=== PATIENT | female | born 1945 | race Caucasian/White ===

== ENCOUNTER 2017-06-21 12:55 | Outpatient (CLI) | payer MEDICARE ==
--- NOTE | 2017-06-27 12:27 | PFT ---
PATIENT HISTORY: HEIGHT: 67 IN WEIGHT: 222 SMOKER: NO HOW LON YRS PACKS PER DAY 2 PRODUCTIVE COUGH: NO LUNG DISEASE: PHYSICIAN INTERPRETATION FINAL REPORT: DATE orthotics technician The patient had good effort and cooperation FVC 2.61 (86%), FEV1 1.97 (91%), FEV1/FVC 0.76. TLC 4.36 (88%), RV 1.77 (88%), FRC 2.01 (69%). Diffusion 17.55 (97%). The FEV1 and the FVC fall within the normal limits. The ratio was also normal suggesting there is no evidence of obstructive airflow limitation. There is no significant improvement following bronchodilator. Total lung capacity and residual volume fall within the normal limits. The FRC is minimally reduced. Diffusion capacity falls easily within the normal limits. IMPRESSION: These pulmonary function studies are normal. Strike Off Machine Operator: NAIF Purchasing Assistant: NAIF EUCEDA
== END 2017-06-21 12:56 | disposition home or self-care (01) ==
LOC: CP 12:55
PROVIDERS: ATTEND Internal Medicine
DX: R06.00 Dyspnea, unspecified (principal); R05 Cough; R53.83 Other fatigue
CPT/HCPCS: 94060; 94727; 94729

== ENCOUNTER 2017-06-23 14:40 | Outpatient (CLI) | payer MEDICARE ==
--- NOTE | 2017-06-23 15:03 | RAD ---
CHEST 2 VIEWS: Date: 06/23/17 COMPARISON: 04/25/14. HISTORY: Dyspnea on exertion, fatigue. FINDINGS: Loop recorder overlies left hilar shadow on frontal imaging. No pneumothorax, pleural fluid, focal co nsolidation, or alveolar edema. Heart and mediastinal contour stable. IMPRESSION: No acute findings. POS: [facility]
== END 2017-06-23 14:41 | disposition home or self-care (01) ==
LOC: RAD 14:40
PROVIDERS: ATTEND Internal Medicine
DX: R06.00 Dyspnea, unspecified (principal); R05 Cough; R53.83 Other fatigue
CPT/HCPCS: 71046

== ENCOUNTER 2018-03-12 10:39 | Outpatient (CLI) | payer MEDICARE ==
--- NOTE | 2018-03-12 13:13 | MRI ---
MRI OF THE LEFT KNEE WITHOUT CONTRAST: Date: 03/12/18 INDICATION: Left knee pain. FINDINGS: There is a horizontally oriented tear involving the body, posterior junction and posterior horn of th e medial meniscus. There is partial medial extrusion of the medial meniscus. The lateral meniscus is intact. Articular cartilage of the femorotibial compartments appears relatively well maintained. The ACL, PCL, MCL, and LCLC are intact. There is focal full thickness articular cartilage defect involvin g the lateral patellar facet with subchondral edema on image 5 of series 4 measuring approximately 8. 0 mm in its greatest axial dimension. There is a small semimembranosus-medial gastrocnemius popliteal cyst. IT band is normal appearing. Extensor mechanism is intact. IMPRESSION: 1. Medial meniscal tear. 2. Moderate chondrosis of the lateral patellar facet with an area of focal full thickness defect juan josé suring 8.0 mm. POS: [facility]
== END 2018-03-12 10:40 | disposition home or self-care (01) ==
LOC: BICMRI 10:39
PROVIDERS: ATTEND Orthopaedic Surgery
DX: M25.562 Pain in left knee (principal); S83.242A Other tear of medial meniscus, current injury, left knee, initial encounter

== ENCOUNTER 2018-04-03 13:14 | Outpatient (CLI) | payer MEDICARE ==
--- NOTE | 2018-04-03 16:21 | MRI ---
MRI RIGHT KNEE WITHOUT CONTRAST: COMPARISON: None. FINDINGS: There is a small, partial-thickness, central radial tear involving the posterior junction of the medi al meniscus, with partial medial extrusion, and this is best seen on image 17 of series 9 and on imag e 18 of series 8. The lateral meniscus is intact. There is moderate chondrosis involving the lateral femorotibial joint compartment. There is mild dif fuse chondrosis involving the medial femorotibial joint compartment. There is moderate to severe cho ndrosis involving the lateral patellofemoral compartment. There are small marginal osteophytes affec ting all major compartments of the right knee. The ACL, PCL, MCL, and LCLC appear intact. The popliteus and IT band appears within normal limits. The extensor mechanism is intact. There is a smaller Isaacs's cyst. IMPRESSION: 1. Mild osteoarthrosis of the right knee, predominantly involving the patellofemoral and lateral fem orotibial joint compartment. 2. Small central free edge radial tear involving the posterior junction of the medial meniscus with partial medial extrusion. POS: [facility]
== END 2018-04-03 13:15 | disposition home or self-care (01) ==
LOC: BICMRI 13:14
PROVIDERS: ATTEND Orthopaedic Surgery
DX: M25.561 Pain in right knee (principal); M17.11 Unilateral primary osteoarthritis, right knee; S83.241A Other tear of medial meniscus, current injury, right knee, initial encounter

== ENCOUNTER 2018-11-29 09:03 | Outpatient (CLI) | payer MEDICARE ==
--- NOTE | 2018-11-29 12:23 | CT ---
CT CHEST AND ABDOMEN AND PELVIS PERFORMED WITH IV CONTRAST ENHANCEMENT: Date: 11/29/18 HISTORY: Chest and abdominal pain. Fatigue and fever x2 years. History of autoimmune disease. Also history of appendectomy. COMPARISON: CT abdomen that was performed 12/21/16. FINDINGS: CT CHEST: Lungs are clear of any infiltrative process. There are no pulmonary nodules identified or pleural eff usions. Thyroid gland normal in size. No significant mediastinal or hilar adenopathy. Thoracic aorta is normal in caliber. CT ABDOMEN: CT of abdomen performed with contrast enhancement. The liver shows no focal abnormalities. The spleen and pancreas regions appear unremarkable. Large gallstones are present. Right and left adrenal gland s, and right and left kidneys are normal in size. There is no significant periaortic or mesenteric ad enopathy. CT PELVIS: CT of pelvis was performed with contrast enhancement. No evidence of any significant adenopathy, mass , or free fluid. Review of osseous structures show some arthritic changes of the spine. IMPRESSION: 1. Large gallstones. 2. No acute findings of the chest, abdomen, or pelvis. POS: [facility]
[2018-11-29] MEDS ORDERED: Iopamidol 370 76% 100 ML VIAL ONE (18:13)
== END 2018-11-29 09:04 | disposition home or self-care (01) ==
LOC: CT 09:03
PROVIDERS: ATTEND Internal Medicine
DX: C85.80 Other specified types of non-Hodgkin lymphoma, unspecified site (principal); R50.9 Fever, unspecified; R53.83 Other fatigue; R61 Generalized hyperhidrosis; K80.20 Calculus of gallbladder without cholecystitis without obstruction
CPT/HCPCS: 71260; 74177; Q9967

== ENCOUNTER 2018-12-20 13:40 | Outpatient (CLI) | payer MEDICARE ==
--- NOTE | 2018-12-20 15:16 | MRI ---
MRI BRAIN WITH AND WITHOUT IV CONTRAST: HISTORY: Headache, anesthesia of skin COMPARISON: 12/23/2016 FINDINGS: No restricted diffusion is seen. No evidence of infarct, hemorrhage, mass, midline shift or abnormal extra-axial fluid collections is noted. No abnormal postcontrast enhancement is seen. The ventricular size is appropriate and the basilar cisterns are patent. There are a few foci of T2 prolongation in the periventricular white matter, consistent with minimal chronic small vessel ischemic disease. These are essentially unchanged since the previous study. The visualized paranasal sinuses and mastoid air cells are well aerated. IMPRESSION: Stable exam. No evidence of acute intracranial process or mass.
== END 2018-12-20 13:41 | disposition home or self-care (01) ==
LOC: BICMRI 13:40
PROVIDERS: ATTEND Internal Medicine
DX: R51 Headache (principal); R20.0 Anesthesia of skin
CPT/HCPCS: 70553

== ENCOUNTER 2019-01-10 13:01 | Outpatient (CLI) | payer MEDICARE ==
--- NOTE | 2019-01-10 14:04 | MMO ---
Bilateral MAMMO Bilat Screen [facility]. CLINICAL HISTORY: Patient is 73 years old and is seen for screening. The patient has the following family history of breast cancer: maternal aunt, at age 60. The patient has no personal history of cancer. VIEWS: The views performed were: bilateral craniocaudal with tomosynthesis and bilateral mediolateral oblique with tomosynthesis. FILMS COMPARED: The present examination has been compared to prior imaging studies performed at [facility] on 02/15/2010, 08/27/2013 and 09/29/2014. This study has been interpreted with the assistance of computer-aided detection. MAMMOGRAM FINDINGS: There are scattered fibroglandular densities. There are no suspicious masses, suspicious calcifications, or new areas of architectural distortion. IMPRESSION: THERE IS NO MAMMOGRAPHIC EVIDENCE OF MALIGNANCY. A ROUTINE FOLLOW-UP MAMMOGRAM IN 1 YEAR IS RECOMMENDED. THE RESULTS OF THIS EXAM WERE SENT TO THE PATIENT. ACR BI-RADS Category 1 - Negative MAMMOGRAPHY NOTE: 1. A negative mammogram report should not delay a biopsy if a dominant of clinically suspicious mass is present. 2. Approximately 10% to 15% of breast cancers are not detected by mammography. 3. Adenosis and dense breasts may obscure an underlying neoplasm. Reported by: Remi CAMPO Electonically Signed: [id number]
== END 2019-01-10 13:02 | disposition home or self-care (01) ==
LOC: BICMAMMO 13:01
PROVIDERS: ATTEND Internal Medicine
DX: Z12.31 Encounter for screening mammogram for malignant neoplasm of breast (principal); Z80.3 Family history of malignant neoplasm of breast
CPT/HCPCS: 77063; 77067

== ENCOUNTER 2019-01-15 10:32 | Outpatient (CLI) | payer MEDICARE ==
--- NOTE | 2019-01-15 14:37 | NM ---
WHOLE BODY BONE SCAN: HISTORY: Skull pain RADIOPHARMACEUTICAL: 32.7 mCi technetium-99m MDP injected intravenously. COMPARISON: MRI brain 12/20/2018 FINDINGS: There is increased uptake in the shoulders, knees, and feet consistent with degenerative changes. No other abnormal areas of tracer localization seen in the skeleton to suggest metastatic disease. No abnormality is seen in the skull. Tracer excretion through the kidneys is within normal limits. IMPRESSION: No significant abnormality.
== END 2019-01-15 10:33 | disposition home or self-care (01) ==
LOC: NM 10:32
PROVIDERS: ATTEND Internal Medicine
DX: R51 Headache (principal); M25.50 Pain in unspecified joint; M54.5 Low back pain
CPT/HCPCS: 78306; A9503

== ENCOUNTER 2020-12-17 13:58 | Outpatient (CLI) | payer MEDICARE | END 2020-12-17 13:59 | disposition home or self-care (01) | LOC: BICMAMMO 13:58 | PROVIDERS: ATTEND Internal Medicine | DX: N63.20 Unspecified lump in the left breast, unspecified quadrant (principal); Z80.3 Family history of malignant neoplasm of breast; R92.8 Other abnormal and inconclusive findings on diagnostic imaging of breast | CPT/HCPCS: 76642 ×2; 77066; G0279 ==

== ENCOUNTER 2021-09-22 17:54 | Observation (INO) | payer MEDICARE ==
[2021-09-22 19:23] LABS: #Eosinphils 0.1 thou/uL (0.0-0.7); #Lymphocytes 1.2 thou/uL (1.20-3.40); #Monocytes 0.4 thou/uL (0.11-0.59); #Neutrophils 4.3 thou/uL (1.40-6.50); %Basophils 0.4 % (0.0-1.0); %Eosinophils 1.8 % (0.0-10.0); %Lymphocytes 19.3 % (21.0-51.0); %Monocytes 7.2 % (0.0-10.0); %Neutrophils 71.3 % (42.0-75.0); Hemoglobin 15.1 g/dL (12.0-16.0); Mean Corpuscular HGB CONC 34.7 g/dL (32.0-36.0); Mean Corpuscular Hemoglobin 34.1 pg (27.0-31.0); Mean Corpuscular Volume 98.1 fL (78.0-98.0); Mean Platelet Volume 9.2 fL (7.4-10.4); Platelet Count 204 thou/uL (130-400); RBC Distribution Width 10.8 % (11.5-14.5); Red Blood Cell (RBC) Count 4.44 mill/uL (4.20-5.40); White Blood Cell (WBC) Count 6.1 thou/uL (4.8-10.8)
[2021-09-22 19:48] LABS: ALT (SGPT) 16 U/L (8-55); AST (SGOT) 19 U/L (5-34); Albumin 4.1 g/dL (3.4-4.8); Alkaline Phosphatase 79 U/L (40-110); Anion Gap 14 mmol/L (10-20); BUN (Urea Nitrogen) 16 mg/dL (9.8-20.1); Bilirubin, Total 0.4 mg/dL (0.2-1.2); Calc. Creatinine Clearance 0 mL/min (70-130); Calcium 9.1 mg/dL (7.8-10.44); Carbon Dioxide 26 mmol/L (23-31); Chloride 104 mmol/L (98-107); Estimated GFR 73; Globulin 2.6 g/dL (2.4-3.5); Glucose 130 mg/dL (83-110); Lipase 26 U/L (8-78); Protein, Total 6.7 g/dL (5.8-8.1); Sodium 139 mmol/L (136-145)
[2021-09-22] MEDS ORDERED: Morphine 4 MG/ML VIAL ONE (20:31)
[2021-09-22] MEDS ORDERED: Ondansetron PF 4 MG/2 ML Vial ONE (20:31)
[2021-09-22 22:13] LABS: Bacteria/HPF 2+ HPF (None Seen); Bilirubin Negative (Negative); Blood, Urine Negative (Negative); Clarity Clear (Clear); Glucose, Urine (Dipstick) Normal (Negative); Ketone, Urine Negative (Negative); Leukocyte 75 Leu/uL (Negative); Nitrite Negative (Negative); Protein, Urine (Dipstick) Negative (Neg-Trace); RBC/HPF 0-3 HPF (0-3); Specific Gravity, Urine 1.017 (1.002-1.036); Urobilinogen Normal mg/dL (Less than 2); WBC/HPF 0-3 HPF (0-3); pH, Urine 5.5 (5.0-9.0)
[2021-09-22] MEDS ORDERED: Morphine 4 MG/ML VIAL SLOW IVP PRN (22:56)
[2021-09-22] MEDS ORDERED: Ondansetron PF 4 MG/2 ML Vial IVP PRN (23:00)
[2021-09-22] MEDS ORDERED: Piperacillin/Tazobactam 3.375 GM in Sodium Chloride 0.9% 100 ML IVPB SCH (23:00)
[2021-09-22] MEDS ORDERED: Ondansetron ODT 4 MG TAB SL PRN (23:00)
[2021-09-22] MEDS ORDERED: Acetaminophen 325 MG TAB PO PRN (23:00)
[2021-09-23] MEDS: Lactated Ringer's 1,000 ML IV SCH ×2 (00:05→08:15)
[2021-09-23] MEDS ORDERED: Piperacillin/Tazobactam 3.375 GM in Sodium Chloride 0.9% 100 ML IVPB SCH (04:00)
[2021-09-23 06:15] VITALS: BMI 38.1
[2021-09-23] MEDS ORDERED: cefOXitin 2 GM in Sodium Chloride 0.9% 100 ML IVPB SCH (10:00)
[2021-09-23] MEDS ORDERED: fentaNYL Citrate/PF 100 MCG/2 ML SYRINGE ONE ×2 (11:07→13:46)
[2021-09-23] MEDS ORDERED: Ondansetron PF 4 MG/2 ML Vial ONE ×2 (12:47→14:00)
[2021-09-23] MEDS ORDERED: Bupivacaine/Epinephrine 0.25% 30 ML VIAL ONE (13:29)
[2021-09-23] MEDS ORDERED: Midazolam HCl 2 mg/2 ml Vial ONE (13:46)
[2021-09-23] MEDS ORDERED: cefTRIAXone\\ROCEPHIN 2 GM VIAL ONE (13:50)
[2021-09-23] MEDS ORDERED: Sodium Chloride 0.9% 100 ML ONE (13:50)
[2021-09-23] MEDS ORDERED: PROPOFOL 200 MG/20 ML VIAL ONE (14:00)
[2021-09-23] MEDS ORDERED: Glycopyrrolate 0.2 MG/ML 5 ML SYRINGE ONE (14:00)
[2021-09-23] MEDS ORDERED: Dexamethasone 20 MG/5 ML VIAL ONE (14:00)
[2021-09-23] MEDS ORDERED: Rocuronium Bromide 10 MG/ML (10ML VIAL) ONE (14:00)
[2021-09-23] MEDS ORDERED: Lidocaine 1% PF 5 ML VIAL ONE (14:00)
[2021-09-23] MEDS ORDERED: HYDROmorphone 2 MG/ML VIAL ONE (14:45)
[2021-09-23] MEDS ORDERED: Promethazine HCl 25 MG/ML VIAL ONE (15:42)
[2021-09-23] MEDS ORDERED: Fentanyl 100 MCG/2 ML VIAL ONE (15:47)
[2021-09-23] MEDS ORDERED: HYDROcodone/Acetaminophen 10/325 mg Tablet PO SCH (18:30)
[2021-09-23] MEDS ORDERED: HYDROcodone/Acetaminophen 7.5/325 mg Tablet PO PRN ×2 (20:58→20:59)
[2021-09-24 08:38] VITALS: BP 121/68; TEMP 98.2
== END 2021-09-24 11:43 | disposition home or self-care (01) ==
LOC: ERS 17:54 → SJJU 22:11
PROVIDERS: ADMIT Specialist; ATTEND Specialist
PROC: 0FT44ZZ Resection of Gallbladder, Percutaneous Endoscopic Approach (ICD-10-PCS; principal; 2021-09-23)
DX: K80.12 Calculus of gallbladder with acute and chronic cholecystitis without obstruction (principal); K66.0 Peritoneal adhesions (postprocedural) (postinfection); E03.9 Hypothyroidism, unspecified; E78.00 Pure hypercholesterolemia, unspecified; M19.90 Unspecified osteoarthritis, unspecified site; I73.00 Raynaud's syndrome without gangrene; M35.00 Sjogren syndrome, unspecified; G62.9 Polyneuropathy, unspecified; E66.01 Morbid (severe) obesity due to excess calories; Z68.38 Body mass index [BMI] 38.0-38.9, adult; Z87.891 Personal history of nicotine dependence; Z79.890 Hormone replacement therapy; Z79.899 Other long term (current) drug therapy; Z88.1 Allergy status to other antibiotic agents; Z88.2 Allergy status to sulfonamides; Z91.013 Allergy to seafood; Z20.822 Contact with and (suspected) exposure to COVID-19
CPT/HCPCS: 47562; 71045; 76705; 80053; 83690; 84484; 85025; 93005; 96361; 96365; 96375; 96376; 99285; C1713; G0378 ×4; U0003; U0005; 81003; 81015; 88304; 96374; J0696; J1100; J1170; J2250; J2270; J2405; J2543; J2550; J2704; J2710; J3010; J3490; J7120

== ENCOUNTER 2021-10-11 17:15 | Emergency (ER) | payer MEDICARE | END 2021-10-11 18:52 | disposition home or self-care (01) | LOC: ERS 17:15 | DX: R58 Hemorrhage, not elsewhere classified (principal); E03.9 Hypothyroidism, unspecified; E78.5 Hyperlipidemia, unspecified; E78.00 Pure hypercholesterolemia, unspecified; Z79.899 Other long term (current) drug therapy; M79.602 Pain in left arm; M79.89 Other specified soft tissue disorders ==

== ENCOUNTER 2021-11-06 14:57 | Inpatient (IN) | payer MEDICARE ==
[2021-11-06 15:30] LABS: #Basophils 0.1 thou/uL (0.0-0.2); #Eosinphils 0.2 thou/uL (0.0-0.7); #Lymphocytes 2.9 thou/uL (1.20-3.40); #Monocytes 0.6 thou/uL (0.11-0.59); #Neutrophils 3.6 thou/uL (1.40-6.50); %Basophils 1.1 % (0.0-1.0); %Eosinophils 2.5 % (0.0-10.0); %Lymphocytes 39.3 % (21.0-51.0); %Monocytes 8.2 % (0.0-10.0); %Neutrophils 48.8 % (42.0-75.0); Hemoglobin 14.9 g/dL (12.0-16.0); Mean Corpuscular HGB CONC 34.5 g/dL (32.0-36.0); Mean Corpuscular Hemoglobin 33.2 pg (27.0-31.0); Mean Corpuscular Volume 96.4 fL (78.0-98.0); Mean Platelet Volume 8.9 fL (7.4-10.4); Platelet Count 218 thou/uL (130-400); RBC Distribution Width 11.3 % (11.5-14.5); Red Blood Cell (RBC) Count 4.48 mill/uL (4.20-5.40); White Blood Cell (WBC) Count 7.3 thou/uL (4.8-10.8)
[2021-11-06 15:53] LABS: ALT (SGPT) 18 U/L (8-55); AST (SGOT) 18 U/L (5-34); Alkaline Phosphatase 77 U/L (40-110); Anion Gap 14 mmol/L (10-20); BUN (Urea Nitrogen) 24 mg/dL (9.8-20.1); Bilirubin, Total 0.5 mg/dL (0.2-1.2); Calc. Creatinine Clearance 0 mL/min (70-130); Calcium 9.3 mg/dL (7.8-10.44); Carbon Dioxide 24 mmol/L (23-31); Chloride 105 mmol/L (98-107); Estimated GFR 57; Globulin 2.5 g/dL (2.4-3.5); Glucose 121 mg/dL (83-110); Lipase 37 U/L (8-78); Potassium 4.1 mmol/L (3.5-5.1); Protein, Total 6.5 g/dL (5.8-8.1); Sodium 139 mmol/L (136-145)
[2021-11-06 19:30] LABS: Troponin I 0.071 ng/mL (< 0.028)
[2021-11-06] MEDS ORDERED: Bisacodyl 5 MG TAB PO PRN (20:16)
[2021-11-06] MEDS ORDERED: Ondansetron PF 4 MG/2 ML Vial IVP PRN (20:16)
[2021-11-06] MEDS ORDERED: Acetaminophen 325 MG TAB PO PRN (20:16)
[2021-11-06 20:36] VITALS: BMI 39.4
[2021-11-06] MEDS ORDERED: Rosuvastatin 5 MG TAB PO SCH (21:00)
[2021-11-06 23:04] LABS: Troponin I 0.115 ng/mL (< 0.028)
[2021-11-07 03:48] LABS: #Eosinphils 0.2 thou/uL (0.0-0.7); #Lymphocytes 1.9 thou/uL (1.20-3.40); #Monocytes 0.5 thou/uL (0.11-0.59); #Neutrophils 3.2 thou/uL (1.40-6.50); %Basophils 0.2 % (0.0-1.0); %Eosinophils 2.9 % (0.0-10.0); %Lymphocytes 32.6 % (21.0-51.0); %Monocytes 8.2 % (0.0-10.0); %Neutrophils 56.2 % (42.0-75.0); Hemoglobin 13.7 g/dL (12.0-16.0); Mean Corpuscular HGB CONC 35.5 g/dL (32.0-36.0); Mean Corpuscular Hemoglobin 34.6 pg (27.0-31.0); Mean Corpuscular Volume 97.4 fL (78.0-98.0); Mean Platelet Volume 9.2 fL (7.4-10.4); Platelet Count 178 thou/uL (130-400); RBC Distribution Width 11.2 % (11.5-14.5); Red Blood Cell (RBC) Count 3.96 mill/uL (4.20-5.40); White Blood Cell (WBC) Count 5.7 thou/uL (4.8-10.8)
[2021-11-07 04:05] LABS: Anion Gap 14 mmol/L (10-20); BUN (Urea Nitrogen) 21 mg/dL (9.8-20.1); Calc. Creatinine Clearance 106 mL/min (70-130); Calcium 8.8 mg/dL (7.8-10.44); Carbon Dioxide 22 mmol/L (23-31); Chloride 109 mmol/L (98-107); Estimated GFR 78; Glucose 90 mg/dL (83-110); Potassium 4.2 mmol/L (3.5-5.1); Sodium 141 mmol/L (136-145)
[2021-11-07 04:07] LABS: Troponin I 0.107 ng/mL (< 0.028)
[2021-11-07] MEDS: Levothyroxine Sodium 75 MCG TAB PO SCH (06:03)
[2021-11-07] MEDS: Rosuvastatin 5 MG TAB PO SCH (08:45)
[2021-11-07] MEDS ORDERED: Enoxaparin Sodium 40 MG/0.4 ML SYRINGE SC SCH (09:00)
[2021-11-07] MEDS: Dronedarone HCl 400 MG TAB PO SCH (16:14)
[2021-11-07] MEDS: Apixaban 5 MG TAB PO SCH (20:46)
[2021-11-08] MEDS: Levothyroxine Sodium 75 MCG TAB PO SCH (05:23)
[2021-11-08] MEDS: Dronedarone HCl 400 MG TAB PO SCH (08:45)
[2021-11-08] MEDS: Rosuvastatin 5 MG TAB PO SCH (08:46)
[2021-11-08] MEDS: Apixaban 5 MG TAB PO SCH (08:46)
[2021-11-08 11:47] VITALS: BP 157/67; TEMP 97.6
== END 2021-11-08 14:16 | disposition home or self-care (01) | DRG 310 ==
LOC: ERS 14:57 → 2SW 18:15 → OBSVTOIN 11-08 09:06
PROVIDERS: ADMIT Internal Medicine; ATTEND Family Medicine
DX: I48.0 Paroxysmal atrial fibrillation (principal); I73.00 Raynaud's syndrome without gangrene; E66.01 Morbid (severe) obesity due to excess calories; M35.00 Sjogren syndrome, unspecified; G62.9 Polyneuropathy, unspecified; M19.90 Unspecified osteoarthritis, unspecified site; E03.9 Hypothyroidism, unspecified; E78.5 Hyperlipidemia, unspecified; F41.9 Anxiety disorder, unspecified; I25.10 Atherosclerotic heart disease of native coronary artery without angina pectoris; E78.00 Pure hypercholesterolemia, unspecified; Z20.822 Contact with and (suspected) exposure to COVID-19; Z88.1 Allergy status to other antibiotic agents; Z88.2 Allergy status to sulfonamides; Z91.013 Allergy to seafood; Z79.899 Other long term (current) drug therapy; Z90.49 Acquired absence of other specified parts of digestive tract; Z68.38 Body mass index [BMI] 38.0-38.9, adult; Z86.73 Personal history of transient ischemic attack (TIA), and cerebral infarction without residual deficits
CPT/HCPCS: 36415; 71045; 80048; 80053; 83690; 83735; 84443; 84484; 85025; 93005; 96372; G0378; J1650; U0003; U0005

== ENCOUNTER 2022-09-30 15:21 | Emergency (ER) | payer MEDICARE, OTHER ==
[2022-09-30] MEDS ORDERED: Boostrix 0.5 ML (Tdap) VIAL (>/=7 yrs of age) ONE (16:35)
== END 2022-09-30 16:41 | disposition home or self-care (01) ==
LOC: ERS 15:21
DX: S60.413A Abrasion of left middle finger, initial encounter (principal); L03.012 Cellulitis of left finger; Z87.891 Personal history of nicotine dependence; X58.XXXA Exposure to other specified factors, initial encounter
CPT/HCPCS: 90471; 90715; 99283

== ENCOUNTER 2023-04-19 15:02 | Outpatient (CLI) | payer MEDICARE, OTHER | END 2023-04-19 15:03 | disposition home or self-care (01) | LOC: BICRAD 15:02 | PROVIDERS: ATTEND Family Medicine | DX: M25.551 Pain in right hip (principal); M53.3 Sacrococcygeal disorders, not elsewhere classified; M47.816 Spondylosis without myelopathy or radiculopathy, lumbar region; M43.16 Spondylolisthesis, lumbar region | CPT/HCPCS: 72100 ==

== ENCOUNTER 2023-08-24 09:50 | Emergency (ER) | payer MEDICARE, OTHER ==
[2023-08-24] MEDS ORDERED: diphenhydrAMINE 50 MG/ML VIAL ONE (10:54)
[2023-08-24] MEDS ORDERED: Famotidine/PF 20 mg/2ml Vial ONE (10:54)
[2023-08-24] MEDS ORDERED: methylPREDNISolone Sod Succ 40 MG VIAL ONE ×2 (10:54→10:55)
[2023-08-24 11:08] LABS: #Basophils 0.04 10x3/uL (0.0-0.2); %Basophils 0.5 % (0.0-1.0); %Eosinophils 2.7 % (0.0-10.0); %Lymphocytes 26.5 % (21.0-51.0); %Monocytes 8.6 % (0.0-10.0); %Neutrophils 61.6 % (42.0-75.0); Hematocrit 40.3 % (36.0-47.0); Hemoglobin 14.4 g/dL (12.0-16.0); Mean Corpuscular HGB CONC 35.7 g/dL (32.0-36.0); Mean Corpuscular Hemoglobin 33.6 pg (27.0-31.0); Mean Corpuscular Volume 94.2 fL (78.0-98.0); Mean Platelet Volume 10.5 fL (7.4-10.4); Platelet Count 234 10x3/uL (130-400); RBC Distribution Width 11.5 % (11.5-14.5); Red Blood Cell (RBC) Count 4.28 mill/uL (4.20-5.40)
[2023-08-24 11:24] LABS: ALT (SGPT) 20 U/L (8-55); AST (SGOT) 25 U/L (5-34); Albumin 3.8 g/dL (3.4-4.8); Alkaline Phosphatase 80 U/L (40-110); Anion Gap 14 mmol/L (10-20); BUN (Urea Nitrogen) 29 mg/dL (9.8-20.1); Bilirubin, Total 0.3 mg/dL (0.2-1.2); Calc. Creatinine Clearance 0 mL/min (70-130); Calcium 9.9 mg/dL (7.8-10.44); Carbon Dioxide 27 mmol/L (23-31); Chloride 103 mmol/L (98-107); Estimated GFR 52; Globulin 3.2 g/dL (2.4-3.5); Glucose 110 mg/dL (83-110); Potassium 4.3 mmol/L (3.5-5.1); Sodium 140 mmol/L (136-145)
[2023-08-24] MEDS ORDERED: Ketorolac Tromethamine 30 MG (1 mL) VIAL ONE (13:34)
== END 2023-08-24 13:40 | disposition home or self-care (01) ==
LOC: ERS 09:50
DX: S20.212A Contusion of left front wall of thorax, initial encounter (principal); M54.6 Pain in thoracic spine; E03.9 Hypothyroidism, unspecified; E78.00 Pure hypercholesterolemia, unspecified; Z87.891 Personal history of nicotine dependence; Z79.899 Other long term (current) drug therapy; V29.99XA Rider (driver) (passenger) of other motorcycle injured in unspecified traffic accident, initial encounter
CPT/HCPCS: 71260; 74177; 80053; 85025; 96374; 96375; 99283; J1200; J1885; J2920; S0028

== ENCOUNTER 2023-09-20 08:47 | Outpatient (CLI) | payer MEDICARE | END 2023-09-20 08:48 | disposition home or self-care (01) | LOC: BICULT 08:47 | PROVIDERS: ATTEND Family Medicine | DX: R93.89 Abnormal findings on diagnostic imaging of other specified body structures (principal) | CPT/HCPCS: 76857 ==

== ENCOUNTER 2023-11-27 10:49 | Outpatient (CLI) | payer MEDICARE | END 2023-11-27 10:50 | disposition home or self-care (01) | LOC: BICRAD 10:49 | PROVIDERS: ATTEND Family Medicine | DX: Z01.818 Encounter for other preprocedural examination (principal) | CPT/HCPCS: 71046 ==

== ENCOUNTER 2024-09-23 11:30 | Inpatient (IN) | payer MEDICARE ==
[2024-09-24] MEDS ORDERED: PROPOFOL 20 ML ONE (06:17)
[2024-09-24] MEDS ORDERED: fentaNYL PF 100 MCG/2 ML SYRINGE ONE (06:17)
[2024-09-24] MEDS ORDERED: Lidocaine 1% PF 5 ML VIAL ONE (06:17)
[2024-09-24] MEDS ORDERED: Rocuronium Bromide 10 MG/ML (10ML VIAL) ONE (06:17)
[2024-09-24] MEDS ORDERED: Lidocaine 2% 6 ML (Jelly) SYR ONE (06:20)
[2024-09-24] MEDS ORDERED: Heparin 5,000 UNITS/ML VIAL ONE (06:35)
[2024-09-24] MEDS ORDERED: CEFAZOLIN 2 GM VIAL ONE (07:14)
[2024-09-24] MEDS ORDERED: hydrALAZINE 20 MG/ML VIAL ONE (08:32)
[2024-09-24] MEDS ORDERED: SUGAMMADEX SODIUM 200 MG/2 ML VIAL ONE (08:54)
[2024-09-24] MEDS ORDERED: Ondansetron PF 4 MG/2 ML Vial ONE (09:33)
[2024-09-24] MEDS ORDERED: hydrALAZINE 20 MG/ML VIAL SLOW IVP PRN (14:11)
[2024-09-24] MEDS ORDERED: Ondansetron PF 4 MG/2 ML Vial IVP PRN (14:11)
[2024-09-24] MEDS ORDERED: Nitroglycerin 50 MG/250 ML BOT 250 ML IVPB PRN (14:11)
[2024-09-24] MEDS ORDERED: Phenylephrine 40 MG/NS 250 ML 250 ML IVPB PRN (14:11)
[2024-09-24 15:34] VITALS: BMI 36.3
[2024-09-24] MEDS: Aspirin Chewable 81 MG TAB PO SCH (20:16)
[2024-09-24] MEDS: Acetaminophen 325 MG TAB PO PRN (20:16)
[2024-09-24] MEDS: Rosuvastatin 5 MG TAB PO SCH (20:16)
[2024-09-25] MEDS: Sertraline 100 MG TAB PO SCH (08:00)
[2024-09-25 08:43] VITALS: TEMP 98.2
== END 2024-09-25 09:55 | disposition home or self-care (01) | DRG 38 ==
LOC: SURG A 09-24 05:42 → CCU 09-24 14:34
PROVIDERS: ADMIT Thoracic Surgery (Cardiothoracic Vascular Surgery); ATTEND Thoracic Surgery (Cardiothoracic Vascular Surgery)
PROC: 03CJ0ZZ Extirpation of Matter from Left Common Carotid Artery, Open Approach (ICD-10-PCS; principal; 2024-09-24)
PROC: 03UJ0KZ Supplement Left Common Carotid Artery with Nonautologous Tissue Substitute, Open Approach (ICD-10-PCS; 2024-09-24)
PROC: 3E03329 Introduction of Other Anti-infective into Peripheral Vein, Percutaneous Approach (ICD-10-PCS; 2024-09-24)
PROC: 03CL0ZZ Extirpation of Matter from Left Internal Carotid Artery, Open Approach (ICD-10-PCS; 2024-09-24)
PROC: 03UL0KZ Supplement Left Internal Carotid Artery with Nonautologous Tissue Substitute, Open Approach (ICD-10-PCS; 2024-09-24)
PROC: 07B20ZZ Excision of Left Neck Lymphatic, Open Approach (ICD-10-PCS; 2024-09-24)
DX: I65.22 Occlusion and stenosis of left carotid artery (principal); I77.2 Rupture of artery; Z88.2 Allergy status to sulfonamides; Z88.1 Allergy status to other antibiotic agents; Z91.013 Allergy to seafood; Z79.82 Long term (current) use of aspirin; Z79.899 Other long term (current) drug therapy; Z79.624 Long term (current) use of inhibitors of nucleotide synthesis; Z90.49 Acquired absence of other specified parts of digestive tract; Z90.710 Acquired absence of both cervix and uterus
CPT/HCPCS: 80048; 85025; 88184; 88185; 88307; 88341; 88342; 93005; 93010; 94640; C1768; J0360; J0665; J1100; J1644; J2405; J2704; J7030; J7620

== ENCOUNTER 2025-01-03 13:55 | Emergency (ER) | payer MEDICARE ==
[2025-01-03] MEDS ORDERED: Acetaminophen 500 MG TAB ONE (15:46)
[2025-01-03] MEDS ORDERED: Ketorolac Tromethamine 30 MG (1 mL) VIAL ONE (15:46)
== END 2025-01-03 16:49 | disposition home or self-care (01) ==
LOC: ERS 13:55
DX: M54.2 Cervicalgia (principal); E03.9 Hypothyroidism, unspecified; E78.00 Pure hypercholesterolemia, unspecified; Z87.891 Personal history of nicotine dependence; Z79.899 Other long term (current) drug therapy
CPT/HCPCS: 72125; 96372; J1885

== ENCOUNTER 2025-01-29 11:03 | Outpatient (CLI) | payer MEDICARE | END 2025-01-29 11:04 | disposition home or self-care (01) | LOC: BICRAD 11:03 | PROVIDERS: ATTEND Family Medicine | DX: M25.561 Pain in right knee (principal); M71.21 Synovial cyst of popliteal space [Baker], right knee; M17.11 Unilateral primary osteoarthritis, right knee; W19.XXXA Unspecified fall, initial encounter ==

== ENCOUNTER 2025-03-03 09:17 | Day surgery (SDC) | payer MEDICARE ==
[2025-02-21 15:01] VITALS: BMI 38.2
[2025-03-03] MEDS ORDERED: Acetaminophen 325 MG TAB ONE (10:40)
[2025-03-03] MEDS ORDERED: metroNIDAZOLE 500 MG (100 mL) BAG ONE (10:41)
[2025-03-03] MEDS ORDERED: CEFAZOLIN 2 GM VIAL ONE (10:41)
[2025-03-03] MEDS ORDERED: fentaNYL PF 100 MCG/2 ML SYRINGE ONE (11:31)
[2025-03-03] MEDS ORDERED: PROPOFOL 20 ML ONE (11:31)
[2025-03-03] MEDS ORDERED: Lidocaine 1% PF 5 ML VIAL ONE (11:37)
[2025-03-03] MEDS ORDERED: Ondansetron PF 4 MG/2 ML Vial ONE ×2 (12:12→13:17)
[2025-03-03] MEDS ORDERED: Glycopyrrolate 0.2 MG/ML 5 ML SYRINGE ONE (12:16)
== END 2025-03-03 15:00 | disposition home or self-care (01) ==
LOC: SDC 09:17
PROVIDERS: ATTEND Surgery
PROC: 0JQC0ZZ Repair Pelvic Region Subcutaneous Tissue and Fascia, Open Approach (ICD-10-PCS; principal; 2025-03-03)
DX: N81.6 Rectocele (principal); N81.11 Cystocele, midline; E78.5 Hyperlipidemia, unspecified; E05.90 Thyrotoxicosis, unspecified without thyrotoxic crisis or storm; F41.9 Anxiety disorder, unspecified; Z87.891 Personal history of nicotine dependence; Z85.42 Personal history of malignant neoplasm of other parts of uterus; Z90.710 Acquired absence of both cervix and uterus; Z90.49 Acquired absence of other specified parts of digestive tract; Z88.2 Allergy status to sulfonamides; Z88.1 Allergy status to other antibiotic agents; Z91.013 Allergy to seafood; Z79.890 Hormone replacement therapy; Z79.899 Other long term (current) drug therapy
CPT/HCPCS: 45560; J1100; J2405; J2704